=== PATIENT | female | born 1990 | race Caucasian/White ===

== ENCOUNTER 2018-08-05 10:53 | Emergency (ER) | payer MEDICAID, OTHER ==
[~2018-08-05] VITALS: Ht 160 cm; Wt 113.4 kg
--- OUTSIDE RECORDS SUMMARY | 2018-08-05 10:59 | XMS REPORT ---
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 Unknown Non Drug Allergy Apr, Unknown SOCIAL HISTORY No smoking Hx information available PLAN OF CARE Activity Details Follow Up karissa Reason:mabel,pano,ext pain VITAL SIGNS Blood pressure systolic 117 mmHg 2016-04-29 Blood pressure diastolic 78 mmHg 2016-04-29 MEDICATIONS Medication Instructions Dosage Frequency Start Date End Date Duration Status Previfem Active RESULTS No Results PROCEDURES Procedure Date Ordered Related Diagnosis Body Site INTRAORL-PERIAPICAL 1 FILM [id number] Apr 29, 2016 INTRAORL-PERIAPICAL EA ADD FILM Apr 29, 2016 BITEWINGS - FOUR FILMS Apr 29, 2016 INTRAORL-PERIAPICAL EA ADD FILM Apr 29, 2016 TOPICAL FLUORIDE VARNISH Apr 29, 2016 PROPHYLAXIS - ADULT Apr 29, 2016 IMMUNIZATIONS No Known Immunizations
--- OUTSIDE RECORDS SUMMARY | 2018-08-05 10:59 | XMS REPORT ---
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 Unknown Non Drug Allergy Apr, Unknown SOCIAL HISTORY No smoking Hx information available PLAN OF CARE Activity Details Follow Up prn Reason:endo #13 VITAL SIGNS Blood pressure systolic 135 mmHg 2016-05-05 Blood pressure diastolic 96 mmHg 2016-05-05 MEDICATIONS Medication Instructions Dosage Frequency Start Date End Date Duration Status Previfem Active Amoxicillin 500 MG Orally 4 times a day 1 capsule 6h Apr, Apr, 7 days Active [place] 5-325 MG Orally every 6 hrs 1 tablet as needed 6h Apr, Apr, 4 days Active RESULTS No Results PROCEDURES Procedure Date Ordered Related Diagnosis Body Site LTD ORAL EVALUATION - PROBLEM FOCUS May 05, 2016 INTRAORL-PERIAPICAL 1 FILM [id number] May 05, 2016 IMMUNIZATIONS No Known Immunizations
--- NOTE | 2018-08-05 11:11 | ED Respiratory ---
General Stated Complaint: CHEST PAIN,NECK PAIN Source: patient, family Exam Limitations: no limitations History of Present Illness Date Seen by Provider: Aug 05, 2018 Time Seen by Provider: 10:55 Initial Comments 27-year-old female with LMP of 07/31 presents with several day history of cough and congestion. Has developed some right sided pleuritic chest pain. She states the pain radiates into her arm and flank. No urinary symptoms have been reported. She states that her cough has been productive of whitish sputum without blood present. She has run a fever to 102. No known injury to her chest. She has no prior history of similar symptoms. She quit smoking one half pack of cigarettes a day approximate one month ago. She denies any leg or calf pain. No lower extremity swelling has been reported. Timing/Duration: yesterday Severity: moderate Prior Episodes/Possible Cause: no prior episodes Modifying Factors: Improves With Activity Associated Symptoms: cough, nasal congestion Allergies and Home Medications Allergies Coded Allergies: No Known Drug Allergies (Unverified , 08/05/18) Patient Home Medication List Home Medication List Reviewed: Yes Review of Systems Review of Systems Constitutional: see HPI, weakness EENTM: nose congestion; No vision loss, No mouth pain, No throat pain Respiratory: see HPI Cardiovascular: see HPI Gastrointestinal: no symptoms reported Genitourinary: no symptoms reported : No LMP: Jul 31, 2018 Musculoskeletal: see HPI Skin: no symptoms reported Psychiatric/Neurological: No Symptoms Reported Hematologic/Lymphatic: No Symptoms Reported Immunological/Allergic: no symptoms reported Past Xhdiigl-Riiner-Pfkjyg Hx Past Med/Social Hx: Reviewed Nursing Past Med/Soc Hx Patient Social History Alcohol Use: Denies Use Smoking Status: Former Smoker Recent Foreign Travel: No (N) Contact w/Someone Who Travel: No (N) Physical Exam Vital Signs - First Documented 08/05/18 11:20 Temp 97.8 Pulse 113 Resp 22 B/P (MAP) 117/78 (91) Pulse Ox 98 O2 Delivery Room Air Capillary Refill : Height: '" Weight: lbs. oz. kg; BMI Method: General Appearance: WD/WN, mild distress, obese Eyes: Bilateral Eye Normal Inspection, Bilateral Eye PERRL, Bilateral Eye EOMI HEENT: PERRL/EOMI, normal ENT inspection, TMs normal; No scleral icterus (R); pharyngeal erythema Neck: non-tender, full range of motion, supple, normal inspection, carotid bruit Respiratory: chest non-tender, normal breath sounds, no respiratory distress, no accessory muscle use, rhonchi (bilat) Cardiovascular: normal peripheral pulses, regular rate, rhythm, no edema, no gallop, no JVD, no murmur Gastrointestinal: normal bowel sounds, non tender, soft, no organomegaly, no pulsatile mass Extremities: normal range of motion, non-tender, normal inspection, no pedal edema, no calf tenderness, normal capillary refill, pelvis stable 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, no motor/sensory deficits, alert, normal mood/affect, oriented x 3 Skin: normal color; No cyanosis, No cool; diaphoresis, damp Lymphatic: no adenopathy Focused Exam Lactate Level 08/05/18 11:55: Lactic Acid Level 2.10*H Lactic Acid Level Laboratory Tests Test 08/05/18 11:55 Lactic Acid Level 2.10 MMOL/L (0.50-2.00) *H Progress/Results/Core Measures Suspected Sepsis SIRS Temperature: Pulse: Respiratory Rate: Laboratory Tests 08/05/18 11:11: White Blood Count 25.7H Blood Pressure / Mean: 08/05/18 11:55: Lactic Acid Level 2.10*H Laboratory Tests 08/05/18 11:11: Creatinine 0.60, Platelet Count 368, Total Bilirubin 0.9 Results/Orders Lab Results Laboratory Tests Test 08/05/18 11:11 08/05/18 11:38 08/05/18 11:55 Range/Units White Blood Count 25.7 H 4.3-11.0 10^3/uL Red Blood Count 4.65 4.35-5.85 10^6/uL Hemoglobin 13.2 11.5-16.0 G/DL Hematocrit 40 35-52 % Mean Corpuscular Volume 86 80-99 FL Mean Corpuscular Hemoglobin 28 25-34 PG Mean Corpuscular Hemoglobin Concent 33 32-36 G/DL Red Cell Distribution Width 13.3 10.0-14.5 % Platelet Count 368 130-400 10^3/uL Mean Platelet Volume 9.9 7.4-10.4 FL Neutrophils (%) (Auto) 91 H 42-75 % Lymphocytes (%) (Auto) 2 L 12-44 % Monocytes (%) (Auto) 7 0-12 % Eosinophils (%) (Auto) 0 0-10 % Basophils (%) (Auto) 0 0-10 % Neutrophils # (Auto) 23.3 H 1.8-7.8 X 10^3 Lymphocytes # (Auto) 0.6 L 1.0-4.0 X 10^3 Monocytes # (Auto) 1.7 H 0.0-1.0 X 10^3 Eosinophils # (Auto) 0.0 0.0-0.3 10^3/uL Basophils # (Auto) 0.0 0.0-0.1 10^3/uL Neutrophils % (Manual) 69 % Lymphocytes % (Manual) 3 % Monocytes % (Manual) 5 % Eosinophils % (Manual) 0 % Basophils % (Manual) 0 % Band Neutrophils 23 % D-Dimer 0.58 H 0.00-0.49 UG/ML Sodium Level 140 135-145 MMOL/L Potassium Level 3.2 L 3.6-5.0 MMOL/L Chloride Level 100 98-107 MMOL/L Carbon Dioxide Level 15 L 21-32 MMOL/L Anion Gap 25 H 5-14 MMOL/L Blood Urea Nitrogen 15 7-18 MG/DL Creatinine 0.60 0.60-1.30 MG/DL Estimat Glomerular Filtration Rate > 60 BUN/Creatinine Ratio 25 Glucose Level 145 H 70-105 MG/DL Calcium Level 9.4 8.5-10.1 MG/DL Corrected Calcium 9.1 8.5-10.1 MG/DL Total Bilirubin 0.9 0.1-1.0 MG/DL Aspartate Amino Transf (AST/SGOT) 12 5-34 U/L Alanine Aminotransferase (ALT/SGPT) 12 0-55 U/L Alkaline Phosphatase 65 40-136 U/L Troponin T 6 <=10 NG/L Total Protein 7.4 6.4-8.2 GM/DL Albumin 4.4 3.2-4.5 GM/DL Urine Color DARK YELLOW Urine Clarity CLEAR Urine pH 6.0 5-9 Urine Specific [place] 1.025 H 1.016-1.022 Urine Protein 1+ H NEGATIVE Urine Glucose (UA) NEGATIVE NEGATIVE Urine Ketones 2+ H NEGATIVE Urine Nitrite NEGATIVE NEGATIVE Urine Bilirubin NEGATIVE NEGATIVE Urine Urobilinogen 0.2 NORMAL MG/DL Urine Leukocyte Esterase TRACE H NEGATIVE Urine RBC (Auto) NEGATIVE NEGATIVE Urine RBC NONE /HPF Urine WBC 5-10 H /HPF Urine Squamous Epithelial Cells 25-50 H /HPF Urine Crystals NONE /LPF Urine Bacteria MODERATE H /HPF Urine Casts NONE /LPF Urine Mucus LARGE H /LPF Urine Culture Indicated NO Lactic Acid Level 2.10 *H 0.50-2.00 MMOL/L My Orders Orders - DECLAN BURCIAGA MD Cbc With Automated Diff (08/05/18 11:03) Comprehensive Metabolic Panel (08/05/18 11:03) Fibrin Degradation Products (08/05/18 11:03) Chest Pa/Lat (2 View) (08/05/18 11:03) Ekg Tracing (08/05/18 11:03) Saline Lock/Iv-Start (08/05/18 11:03) Monitor-Rhythm Ecg Trace Only (08/05/18 11:03) Ua Culture If Indicated (08/05/18 11:03) Troponin T (08/05/18 11:03) Ketorolac Injection (Toradol Injection) (08/05/18 11:14) Ondansetron Injection (Zofran Injectio (08/05/18 11:15) Ns Iv 1000 Ml (Sodium Chloride 0.9%) (08/05/18 11:14) Manual Differential (08/05/18 11:11) Blood Culture (08/05/18 11:45) Ceftriaxone For Iv Use (Rocephin For I (08/05/18 11:45) Azithromycin Injection (Zithromax Inject (08/05/18 11:45) Lactic Acid Analyzer (08/05/18 11:45) Ceftriaxone For Iv Use (Rocephin For I (08/05/18 11:53) Water (Sterile) For Injection (Sterile W (08/05/18 11:53) Azithromycin Injection (Zithromax Inject (08/05/18 11:54) Ns (Ivpb) (Sodium Chloride 0.9%) (08/05/18 11:55) Ct Angio Chest W (08/05/18 12:31) Iohexol Injection (Omnipaque 350 Mg/Ml 1 (08/05/18 13:00) Received Contrast (Contrast Received) (08/05/18 13:00) Sodium Chloride Flush (Catheter Flush Sy (08/05/18 13:00) Ns (Ivpb) (Sodium Chloride 0.9% Ivpb Bag (08/05/18 13:00) Medications Given in ED Current Medications Medications Dose Ordered Sig/Nicol Route Start Time Stop Time Status Last Admin Dose Admin Azithromycin 500 mg/Sodium Chloride 250 ml @ 250 mls/hr ONCE ONCE IV 08/05/18 11:45 08/05/18 12:44 DC 08/05/18 12:39 250 MLS/HR Ceftriaxone Sodium 1000 mg/ Sterile Water 10 ml @ 200 mls/hr ONCE ONCE IV 08/05/18 11:45 08/05/18 12:02 DC 08/05/18 12:06 200 MLS/HR Iohexol 125 ml ONCE ONCE IV 08/05/18 13:00 08/05/18 13:01 DC 08/05/18 12:56 125 ML Ondansetron HCl 4 mg ONCE ONCE IVP 08/05/18 11:15 08/05/18 11:16 DC 08/05/18 11:31 4 MG Sodium Chloride 10 ml NEEDED PRN IV 08/05/18 13:00 08/05/18 12:56 10 ML Sodium Chloride 50 ml ONCE ONCE IV 08/05/18 13:00 08/05/18 13:01 DC 08/05/18 12:56 50 ML Vital Signs/I&O 08/05/18 11:20 Temp 97.8 Pulse 113 Resp 22 B/P (MAP) 117/78 (91) Pulse Ox 98 O2 Delivery Room Air Capillary Refill : < 2 sec Progress Note : Time: 11:11 Progress Note Patient has stable vital signs and normal oxygenation. Will obtain workup and monitor closely. 1150 CXR neg but WBC 25,700. Awaiting remaining tests. Will obtain blood culture, lactic acid and start antibiotics for CAP coverage. Urine studies pending. 1233 D-dimer elevated. With pleuritic chest pain, will proceed with CT angio of the chest to rule out PE or other vascular event. 1355 I had a long discussion with patient and her mother. She has received appropriate antibiotics for pneumonia which was found on the CT but not seen on plain chest x-ray. She is feeling much better. Patient prefers to not be admitted. I think that this is reasonable in light of her clinical course. She agrees to follow up with her PCP tomorrow for reevaluation. Will discharge on Augmentin and ibuprofen. She was given instructions to return immediately if symptoms should worsen. ECG Initial ECG Impression Date: Aug 05, 2018 Initial ECG Impression Time: 11:09 Initial ECG Rate: 109 Initial ECG Rhythm: S.Tach Initial ECG Intervals: Normal Initial ECG Impression: Normal Initial ECG Comparisson: No Previous ECG Available Diagnostic Imaging Diagonstic Imaging: Xray, CT Plain Films/CT/US/NM/MRI: chest Comments NAME: [facility] REC#: [id number] PT STATUS: REG ER : 1990 PHYSICIAN: DECLAN BURCIAGA MD ADMIT DATE: 08/05/18/ER FS Signed Date of Exam:08/05/18 CHEST PA/LAT (2 VIEW) EXAM: CHEST PA/LAT (2 VIEW ) INDICATION: Right-sided chest pain radiating into the neck and shoulder blade. COMPARISON: None. FINDINGS: Normal heart size and central pulmonary vascularity. No focal pulmonary opacity, pleural effusion or pneumothorax. No acute osseous findings. IMPRESSION: No acute cardiopulmonary findings. Dictated by: Dictated on workstation # [id number] Dict: 08/05/18 1132 Trans: 1138 MELANIE [id number] Interpreted by: MARIN LOTT MD Electronically signed by : MARIN LOTT MD 08/05/18 1138 NAME: [facility] REC#: [id number] PT STATUS: REG ER : 1990 PHYSICIAN: DECLAN BURCIAGA MD ADMIT DATE: 08/05/18/ER FS Draft Date of Exam:08/05/18 CT ANGIO CHEST W PROCEDURE: CT angiography of the chest with contrast. TECHNIQUE: Multiple contiguous axial images were obtained through the chest after uneventful bolus administration of intravenous contrast. 2D reconstructed CTA MIP acquisitions were also performed. INDICATION : Chest pain. FINDINGS: There are no prior CTA examinations available for comparison. The plain film examination of the chest performed earlier today at 11:05 a.m. reported no acute abnormality. On this exam, the pulmonary arteries to the lung bases are not well opacified. There is no definite defect, however, to suggest a pulmonary embolus. The aorta is not abnormally dilated, and there is no sign of a dissection. The heart size is within normal limits. There are no coronary artery calcifications identified. There is a prominent soft tissue density in the right infrahilar region. This area measures 5.1 x 6.1 cm. In a patient of this age, this finding is more likely due to pneumonia/atelectasis than to neoplasm. Even so, a short-term (4-6 week) followup CT chest exam would be recommended for further study. The lungs are otherwise generally clear. There is no mediastinal or hilar adenopathy. The thyroid gland, where visualized , is unremarkable. There is no obvious breast mass. The sections through the upper abdomen fail to show any sign of an acute abnormality. The bone windows are unremarkable for a fracture or for a destructive lesion. IMPRESSION: 1. There is a prominent area of increased density in the right infrahilar region. This finding is more likely due to pneumonia/atelectasis than neoplasm. Recommendations as above. 2. There is no acute cardiopulmonary abnormality noted otherwise. In particular, there is no sign of a pulmonary embolus or of a dissection. Dictated on workstation # [id number] Dict: 08/05/18 1323 Trans : 08/05/18 1338 [id number] Interpreted by: SHELIA BONILLA MD Electronically signed by: Departure Impression Primary Impression: Pneumonia Qualified Codes: J18.1 - Lobar pneumonia, unspecified organism Additional Impressions: Pleuritis Elevated d-dimer Leukocytosis Qualified Codes: D72.829 - Elevated white blood cell count, unspecified Disposition: 01 HOME, SELF-CARE Condition: Improved Departure-Patient Inst. Decision time for Depature: 13:57 Patient Instructions: Community-Acquired Pneumonia in Adults Add. Discharge Instructions: See your PCP tomorrow. Return to ER if problems worsen. Scripts Ibuprofen (Ibuprofen) 800 Mg Tablet 800 MG PO Q8H PRN for PAIN, #30 TAB 0 Refills Prov: DECLAN BURCIAGA MD 08/05/18 Amoxicillin/Potassium Clav (Augmentin 875-125 Tablet) 1 Each Tablet 1 EACH PO BID, #14 TAB 0 Refills Prov: DECLAN BURCIAGA MD 08/05/18 DECLAN BURCIAGA MD Aug 05, 2018 11:11
[2018-08-05] MEDS ORDERED: KETOROLAC 30 MG/ML VIAL IVP STA (11:14)
[2018-08-05] MEDS ORDERED: NS IV 1000 ML 1,000 ML IV STA (11:14)
[2018-08-05] MEDS ORDERED: ONDANSETRON 4 MG/2 ML (SDV) Z0FRAN IVP ONE (11:15)
--- NOTE | 2018-08-05 11:36 | Diagnostic Imaging Report ---
EXAM: CHEST PA/LAT (2 VIEW) INDICATION: Right-sided chest pain radiating into the neck and shoulder blade. COMPARISON: None. FINDINGS: Normal heart size and central pulmonary vascularity. No focal pulmonary opacity, pleural effusion or pneumothorax. No acute osseous findings. IMPRESSION: No acute cardiopulmonary findings. Dictated by: Dictated on workstation # [id number]
[2018-08-05 11:38] LABS: BASOPHILS % (AUTO) 0 % (0-10); EOSINOPHILS % (AUTO) 0 % (0-10); HEMATOCRIT 40 % (35-52); HEMOGLOBIN 13.2 G/DL (11.5-16.0); LYMPHOCYTES # (AUTO) 0.6 X 10^3 (1.0-4.0); LYMPHOCYTES % (AUTO) 2 % (12-44); MEAN CORPUSCULAR HEMOGLOBIN 28 PG (25-34); MEAN CORPUSCULAR HGB CONC 33 G/DL (32-36); MEAN CORPUSCULAR VOLUME 86 FL (80-99); MEAN PLATELET VOLUME 9.9 FL (7.4-10.4); MONOCYTES % (AUTO) 7 % (0-12); NEUTROPHILS # (AUTO) 23.3 X 10^3 (1.8-7.8); NEUTROPHILS % (AUTO) 91 % (42-75); PLATELET COUNT 368 10^3/uL (130-400); RED CELL DISTRIBUTION WIDTH 13.3 % (10.0-14.5); WHITE BLOOD COUNT 25.7 10^3/uL (4.3-11.0)
[2018-08-05 11:39] LABS: BAND NEUTROPHILS 23 %; LYMPHOCYTES % (MANUAL) 3 %; MONOCYTES # (AUTO) 1.7 X 10^3 (0.0-1.0); MONOCYTES % (MANUAL) 5 %; NEUTROPHILS % (MANUAL) 69 %
[2018-08-05 11:40] LABS: BASOPHILS % (MANUAL) 0 %; EOSINOPHILS % (MANUAL) 0 %
[2018-08-05 11:44] LABS: ALANINE AMINOTRANSFERASE 12 U/L (0-55); ALBUMIN 4.4 GM/DL (3.2-4.5); ALKALINE PHOSPHATASE 65 U/L (40-136); BILIRUBIN,TOTAL 0.9 MG/DL (0.1-1.0); BUN/CREATININE RATIO 25; CALCIUM 9.4 MG/DL (8.5-10.1); CARBON DIOXIDE 15 MMOL/L (21-32); CHLORIDE 100 MMOL/L (98-107); GFR ESTIMATED > 60; GLUCOSE 145 MG/DL (70-105); POTASSIUM 3.2 MMOL/L (3.6-5.0); SODIUM 140 MMOL/L (135-145); TOTAL PROTEIN 7.4 GM/DL (6.4-8.2)
[2018-08-05] MEDS ORDERED: cefTRIAXone FOR IV USE 1,000 MG in WATER (STERILE) FOR INJECTION 10 ML IV ONE (11:45)
[2018-08-05] MEDS ORDERED: AZITHROMYCIN INJECTION 500 MG in NS (IVPB) 250 ML IV ONE (11:45)
[2018-08-05 11:53] LABS: CLARITY,URINE CLEAR; COLOR,URINE DARK YELLOW
[2018-08-05] MEDS ORDERED: WATER (STERILE) FOR INJECTION 10 ML ONE (11:53)
[2018-08-05] MEDS ORDERED: cefTRIAXone 1,000 MG IV (ROCEPHIN) VIAL ONE (11:53)
[2018-08-05 11:54] LABS: BACTERIA,URINE MODERATE /HPF; BILIRUBIN,URINE NEGATIVE (NEGATIVE); GLUCOSE, URINE (UA) NEGATIVE (NEGATIVE); KETONES,URINE 2+ (NEGATIVE); LEUKOCYTE ESTERASE ,URINE TRACE (NEGATIVE); NITRITE,URINE NEGATIVE (NEGATIVE); PROTEIN,URINE 1+ (NEGATIVE); SQUAMOUS EPITHELIAL CELL,UR 25-50 /HPF; UROBILINOGEN,URINE 0.2 MG/DL (NORMAL)
[2018-08-05] MEDS ORDERED: AZITHROMYCIN 500 MG (ZITHROMAX) VIAL ONE (11:54)
[2018-08-05] MEDS ORDERED: NS (IVPB) 250 ML ONE (11:55)
[2018-08-05] MEDS ORDERED: CATHETER FLUSH 10 ML SYR IV PRN (13:00)
[2018-08-05] MEDS ORDERED: HOLD METFORMIN - RECEIVED CONTRAST 20 ML VIAL IV SCH (13:00)
[2018-08-05] MEDS ORDERED: IOHEXOL 350 MG/ML 150 ML (OMNIPAQUE 350) VIAL IV ONE (13:00)
[2018-08-05] MEDS ORDERED: NS 50 ML (IVPB) BAG IV ONE (13:00)
--- NOTE | 2018-08-05 13:39 | Diagnostic Imaging Report ---
PROCEDURE: CT angiography of the chest with contrast. TECHNIQUE: Multiple contiguous axial images were obtained through the chest after uneventful bolus administration of intravenous contrast. 2D reconstructed CTA MIP acquisitions were also performed. INDICATION: Chest pain. FINDINGS: There are no prior CTA examinations available for comparison. The plain film examination of the chest performed earlier today at 11:05 a.m. reported no acute abnormality. On this exam, the pulmonary arteries to the lung bases are not well opacified. There is no definite defect, however, to suggest a pulmonary embolus. The aorta is not abnormally dilated, and there is no sign of a dissection. The heart size is within normal limits. There are no coronary artery calcifications identified. There is a prominent soft tissue density in the right infrahilar region. This area measures 5.1 x 6.1 cm. In a patient of this age, this finding is more likely due to pneumonia/atelectasis than to neoplasm. Even so, a short-term (4-6 week) followup CT chest exam would be recommended for further study. The lungs are otherwise generally clear. There is no mediastinal or hilar adenopathy. The thyroid gland, where visualized, is unremarkable. There is no obvious breast mass. The sections through the upper abdomen fail to show any sign of an acute abnormality. The bone windows are unremarkable for a fracture or for a destructive lesion. IMPRESSION: 1. There is a prominent area of increased density in the right infrahilar region. This finding is more likely due to pneumonia/atelectasis than neoplasm. Recommendations as above. 2. There is no acute cardiopulmonary abnormality noted otherwise. In particular, there is no sign of a pulmonary embolus or of a dissection. Dictated by: Dictated on workstation # [id number]
[2018-08-05] MEDS ORDERED: IBUP-1780 PO (13:59)
[2018-08-05] MEDS ORDERED: AMOX-358 PO (13:59)
[2018-08-05 14:08] VITALS: BP 111/75
== END 2018-08-05 14:08 | disposition home or self-care (01) ==
LOC: ER FS 10:55
DX: J18.9 Pneumonia, unspecified organism (principal); D72.829 Elevated white blood cell count, unspecified; R79.89 Other specified abnormal findings of blood chemistry; Z87.891 Personal history of nicotine dependence
CPT/HCPCS: 36415; 71046; 71275; 80053; 81000; 83605; 84484; 85007; 85027; 85379; 87040; 87077; 93005; 93041

== ENCOUNTER → 2020-04-01 | Outpatient (CLI) | payer MEDICAID ==
[~2020-04-01] MED LIST: AMOX-358 PO; IBUP-1780 PO
--- NOTE | 2020-04-01 16:56 | Diagnostic Imaging Report ---
EXAMINATION: Right ankle radiographs, 3 views. Left ankle radiograph, 3 views. COMPARISON: None. HISTORY: 29-year-old female, bilateral ankle pain. FINDINGS: There is no identified acute fracture. There is no ankle joint effusion. The joint spaces are well preserved. There is no prominent focal soft tissue swelling. There is a small left calcaneal heel spur. IMPRESSION: 1. Small left calcaneal heel spur. 2. Unremarkable right ankle radiographs. Dictated by: Dictated on workstation # [id number]
== END ==
LOC: RAD FS 14:27
PROVIDERS: ATTEND Nurse Practitioner Family
DX: M77.32 Calcaneal spur, left foot (principal); M25.571 Pain in right ankle and joints of right foot

== ENCOUNTER → 2020-12-01 | Outpatient (CLI) | payer MEDICAID ==
--- NOTE | 2020-12-01 13:18 | Diagnostic Imaging Report ---
INDICATION: Ankle pain. COMPARISON: 04/01/2020. TECHNIQUE: Three radiographs of the left ankle dated 12/01/2020. FINDINGS: No acute fracture or dislocation. No destructive osseous process. The talar dome is unremarkable. The ankle mortise is symmetric. Small plantar calcaneal enthesophyte. No evidence of tarsal coalition. IMPRESSION: No acute osseous abnormality with small plantar calcaneal enthesophyte. Dictated by: Dictated on workstation # [id number]
== END ==
LOC: RAD FS 11:19
PROVIDERS: ATTEND Nurse Practitioner Family
DX: M77.32 Calcaneal spur, left foot (principal)
CPT/HCPCS: 73610